=== PATIENT | female | born 1995 | race Caucasian/White ===

== ENCOUNTER 2021-06-10 14:26 | Outpatient (RCR) | payer OTHER | END 2021-06-13 | disposition home or self-care (01) | LOC: WSOH | DX: S06.0X1A Concussion with loss of consciousness of 30 minutes or less, initial encounter (principal); Y99.0 Civilian activity done for income or pay; F41.9 Anxiety disorder, unspecified ==

== ENCOUNTER 2021-06-23 13:54 | Outpatient (RCR) | payer OTHER | END 2021-07-14 | disposition home or self-care (01) | LOC: WSOH | DX: S06.0X1D Concussion with loss of consciousness of 30 minutes or less, subsequent encounter (principal); F41.9 Anxiety disorder, unspecified; Y99.0 Civilian activity done for income or pay ==

== ENCOUNTER 2021-08-11 14:15 | Outpatient (RCR) | payer OTHER | END 2021-08-13 | disposition home or self-care (01) | LOC: WSPT | DX: S06.0X1D Concussion with loss of consciousness of 30 minutes or less, subsequent encounter (principal); X58.XXXD Exposure to other specified factors, subsequent encounter ==

== ENCOUNTER 2021-08-27 16:30 | Outpatient (RCR) | payer OTHER | END 2021-09-13 | disposition home or self-care (01) | LOC: WSPT | DX: S06.0X1D Concussion with loss of consciousness of 30 minutes or less, subsequent encounter (principal); X58.XXXD Exposure to other specified factors, subsequent encounter ==

== ENCOUNTER 2021-09-07 10:25 | Outpatient (RCR) | payer OTHER | END 2021-09-13 | disposition home or self-care (01) | LOC: WSOH | DX: S06.0X1D Concussion with loss of consciousness of 30 minutes or less, subsequent encounter (principal); Y99.0 Civilian activity done for income or pay ==

== ENCOUNTER 2021-09-21 10:26 | Outpatient (RCR) | payer OTHER | END 2021-10-14 | disposition home or self-care (01) | LOC: WSOH | DX: S06.0X1D Concussion with loss of consciousness of 30 minutes or less, subsequent encounter (principal); Y99.0 Civilian activity done for income or pay; F41.9 Anxiety disorder, unspecified ==